=== PATIENT | female | born 1965 | race Hispanic/Latino ===

== ENCOUNTER 2020-08-05 10:42 | Emergency (ER) | payer SELFPAY ==
[~2020-08-05] VITALS: Ht 157.5 cm; Wt 81.2 kg
[2020-08-05] MEDS ORDERED: BACTRIM DS TAB1 EACH PO (11:11)
== END 2020-08-05 11:30 | disposition home or self-care (01) ==
LOC: FSED 11:03
DX: R30.0 Dysuria (principal); N39.0 Urinary tract infection, site not specified; I10 Essential (primary) hypertension; F41.9 Anxiety disorder, unspecified
CPT/HCPCS: 81003; 99283